=== PATIENT | female | born 1955 | race Caucasian/White ===

== ENCOUNTER → 2018-06-14 | Outpatient (CLI) | payer MEDICARE, MEDICAID ==
--- NOTE | 2018-06-14 14:49 | RADIOLOGY REPORT (SQ) ---
EXAM DESCRIPTION: CHEST 2 VIEWS COMPLETED DATE/TIME: 06/14/2018 1:45 pm REASON FOR STUDY: COUGH COMPARISON: None. EXAM PARAMETERS: NUMBER OF VIEWS: two views TECHNIQUE: Digital Frontal and Lateral radiographic views of the chest acquired. RADIATION DOSE: NA LIMITATIONS: none FINDINGS: LUNGS AND PLEURA: No opacities, masses or pneumothorax. No pleural effusion. MEDIASTINUM AND HILAR STRUCTURES: No masses or contour abnormalities. HEART AND VASCULAR STRUCTURES: Borderline cardiomegaly. No evidence for failure. BONES: Increased kyphotic curvature in dextroconvex scoliosis of the thoracic spine and degenerative changes. HARDWARE: None in the chest. OTHER: Prior cholecystectomy. Hardware anterior fusion lower cervical spine. IMPRESSION: 1. NO ACUTE RADIOGRAPHIC FINDING IN THE CHEST. TECHNICAL DOCUMENTATION: JOB ID: [id number] [employer]- All Rights Reserved Reading location - IP/workstation name: [email or web address]
== END ==
LOC: RAD 13:22
PROVIDERS: ATTEND Physician Assistant
DX: J44.9 Chronic obstructive pulmonary disease, unspecified (principal); R05 Cough
CPT/HCPCS: 71046

== ENCOUNTER → 2019-09-11 | Outpatient (CLI) | payer MEDICARE, MEDICAID ==
--- NOTE | 2019-09-11 13:06 | ER RDC ASSESSMENT REPORT ---
Intake - In the Last 14 days Have you traveled outside [place]?: No Have you been in close contact with someone CONFIRMED: No Worked in Healthcare?: No - Symptoms Subjective Fever([place] feverish): No Chills: No Muscule Aches: No Runny Nose: Yes Sore Throat: Yes Cough (New or worsening chronic cough): Yes Shortness of breath: Yes Nausea or Vomiting: No Headache: Yes Abdominal Pain: No Diarrhea(3 or more loose stools in last 24 hours): Yes - Do you have any of the following Chronic lung disease: Asthma or emphysema or COPD: Yes Chronic Lung Disease Comment: Has a history of COPD and asthma Cystic Fibrosis: No Diabetes: Yes High Blood Pressure: Yes Cardiovascular Disease: Yes Chronic Kidney Disease: No Chronic Liver Disease: No Chronic blood disorder like Sickle Cell Disease: No Weak immune system due to disease or medication: Yes Immune System Comment: Has history of bladder cancer with recent tumor removal this past August Neurologic condition that limits movement: No Developmental delay - Moderate to Severe: No Recent (within past 2 weeks) or current : No Morbid Obesity (>100 pounds over ideal weight): No Obesity Comment: Height 5 feet 3 inches weight 170 pounds - Objective Temperature: 98.1 F Pulse Rate: 61 Respiratory Rate: 20 Blood Pressure: 117/54 O2 Sat by Pulse Oximetry: 94 Objective: Given above, testing performed: If Testing Performed: Test Specimen Type Sent to General - General Information source: Patient Notes: Here at [facility] for COVID testing. Started feeling sick 2 days ago with runny nose sore throat cough. Was recently at a family gathering where members were sick and potentially have COVID. Patient has not notified PCP of recent illness. Plans to call her today. Denies fever, denies chills or muscle aches. Complains feels like sinus infection. Past Medical History - Social History Smoking Status: Current Every Day Smoker Physical Exam - General General appearance: Appears well, Alert In distress: None Notes: PHYSICAL EXAMINATION: GENERAL: Well-appearing and in no acute distress. HEAD: Atraumatic, normocephalic. EYES: sclera anicteric, conjunctiva are normal. ENT: nares patent. Moist mucous membranes. NECK: Normal range of motion, supple without lymphadenopathy LUNGS: CTAB and equal. No wheezes rales or rhonchi. Resp even and unlabored. Lung sounds clear. HEART: Regular rate and rhythm without murmurs ABDOMEN: Soft, nontender, normal bowel sounds, no guarding. EXTREMITIES: No cyanosis. NEUROLOGICAL: Normal speech. PSYCH: Normal mood, normal affect. SKIN: Warm, Dry, normal turgor, Diagnostic Results Laboratory Results: Patient instructed on negative rapid strep and negative rapid flu results. Pending strep culture pending COVID testing results. Patient provided instructions regarding COVID to include: As a person under investigation for Covid 19, the [facility], division of public health advises you to adhere to the following guidance until your test results are reported to you. If your test result is positive, you will receive additional information from your provider and your local health department at that time. Remain at home until you are cleared by the health provider or public health authorities. Keep a log of visitors to your home, notify any visitors to your home of your isolation status. If you plan to move to a new address or leave the [facility], notify the local health department in your [facility]. Call your doctor or seek care if you have an urgent medical need. Before seeking medical care, call ahead to get instructions from the provider before arriving at the medical office clinic or hospital. Notify them that you are being tested for the virus that causes Covid 19 so that arrangements can be made, as necessary, to prevent transmission to others in the healthcare setting. Next, notify the local health department in your [facility]. If a medical emergency arises and you need to call 911, inform the first responders that you are being tested for the virus that causes Covid 19. Next, notify the local health department in your [facility]. Patient Education/Counseling Counseling/Education: Patient presents with upper respiratory symptoms worrisome for possible Covid 19. Patient does not have emergency worring symptoms such as difficulty breathing, shortness of breath, chest pain, pressure, confusion or cyanosis. Patient appears suitable for discharge. Patient instruced to follow up with PCP in [facility],. Instructed to go to ED for persistent or worsening symptoms. Patient's vital signs are stable and patient is nontoxic in appearance. Good return precautions have been discussed with patient, patient verbalized understanding and is agreeable with discharge plan of care at this time. RDC Discharge - Discharge Clinical Impression: Upper respiratory infection, COVID - 19 SCREENING Condition: Stable Disposition: Home; Selfcare
[2019-09-11 13:19] VITALS: BP 117/54
[2019-09-11 14:46] LABS: A TYPE INFLUENZA AG NEGATIVE (NEGATIVE); B INFLUENZA AG NEGATIVE (NEGATIVE)
== END ==
LOC: RDC 12:20
PROVIDERS: ATTEND Nurse Practitioner Family
DX: J06.9 Acute upper respiratory infection, unspecified (principal); Z20.828 Contact with and (suspected) exposure to other viral communicable diseases; J02.9 Acute pharyngitis, unspecified; R09.89 Other specified symptoms and signs involving the circulatory and respiratory systems; R05 Cough; R06.02 Shortness of breath; R51 Headache; R19.7 Diarrhea, unspecified; J44.9 Chronic obstructive pulmonary disease, unspecified; F17.200 Nicotine dependence, unspecified, uncomplicated; I10 Essential (primary) hypertension; Z85.51 Personal history of malignant neoplasm of bladder
CPT/HCPCS: 87070; 87880; 87804; U0003; 87635; 99211

== ENCOUNTER 2019-09-26 11:34 | Inpatient (IN) | payer MEDICARE, MEDICAID ==
[2019-09-26] MEDS ORDERED: NORMAL SALINE 1000 ML 1,000 ML IV ONE ×2 (11:57→15:45)
[2019-09-26 12:12] LABS: ABSOLUTE BASOPHILS # (AUTO) 0.1 10^3/uL (0.0-0.2); ABSOLUTE EOSINOPHILS # (AUTO) 0.2 10^3/uL (0.0-0.6); ABSOLUTE LYMPHOCYTES (AUTO) 2.3 10^3/uL (0.5-4.7); ABSOLUTE MONOCYTES (AUTO) 0.9 10^3/uL (0.1-1.4); ABSOLUTE NEUT (AUTO) 8.2 10^3/uL (1.7-8.2); BASOPHILS % (AUTO) 0.9 % (0-2); EOSINOPHILS % (AUTO) 1.6 % (0-6); HEMATOCRIT 50.3 % (36.0-47.0); HEMOGLOBIN 16.8 g/dL (12.0-15.5); MEAN CORPUSCULAR HEMOGLOBIN 31.5 pg (27.0-33.4); MEAN CORPUSCULAR HGB CONC 33.3 g/dL (32.0-36.0); MEAN CORPUSCULAR VOLUME 94 fl (80-97); MONOCYTES % (AUTO) 7.5 % (3-13); PLATELET COUNT 172 10^3/uL (150-450); RED BLOOD COUNT 5.33 10^6/uL (3.72-5.28); RED CELL DISTRIBUTION WIDTH 14.9 % (11.5-14.0); TOTAL CELLS COUNTED % (AUTO) 100 %; WHITE BLOOD COUNT 11.7 10^3/uL (4.0-10.5)
[2019-09-26 12:20] LABS: INTERNATIONAL RATION (INR) 0.98
[2019-09-26 13:17] LABS: VENOUS BLOOD BASE EXCESS -2.4 mmol/L; VENOUS BLOOD HCO3 26.7 mmol/L (20-32); VENOUS BLOOD PCO2 63.8 mmHg (35-63); VENOUS BLOOD PH 7.24 (7.30-7.42)
[2019-09-26 13:35] LABS: ALBUMIN 3.7 g/dL (3.5-5.0); ALKALINE PHOSPHATASE 81 U/L (38-126); ANION GAP 6 (5-19); ASPARTATE AMINO TRANSFERASE 16 U/L (14-36); BILIRUBIN,TOTAL 0.6 mg/dL (0.2-1.3); BLOOD UREA NITROGEN 24 mg/dL (7-20); CALCIUM 8.7 mg/dL (8.4-10.2); CARBON DIOXIDE 25 mmol/L (22-30); CHLORIDE 106 mmol/L (98-107); GLUCOSE 138 mg/dL (75-110); POTASSIUM 4.7 mmol/L (3.6-5.0); TOTAL PROTEIN 6.4 g/dL (6.3-8.2)
--- NOTE | 2019-09-26 15:14 | RADIOLOGY REPORT (SQ) ---
EXAM DESCRIPTION: CT ABD/PELVIS WITH IV ONLY IMAGES COMPLETED DATE/TIME: 09/26/2019 2:57 pm REASON FOR STUDY: pain/vomiting COMPARISON: None. TECHNIQUE: CT scan of the abdomen and pelvis performed using helical scanning technique with dynamic intravenous contrast injection. No oral contrast. Images reviewed with lung, soft tissue, and bone windows. Reconstructed coronal and sagittal MPR images reviewed. Delayed images for evaluation of the urinary system also acquired. All images stored on PACS. All CT scanners at this facility use dose modulation, iterative reconstruction, and/or weight based d osing when appropriate to reduce radiation dose to as low as reasonably achievable (ALARA). [facility]: Dose Right [facility]: CareDose [facility]: Dose Right [facility]: Teradose 4D [facility]: Crystalplex CONTRAST TYPE AND DOSE: contrast/concentration: Isovue 350.00 mg/ml; Total Contrast Delivered: 87.0 ml; Total Saline Delivered: 46.7 ml RENAL FUNCTION: BUN 21 creatinine 0.8 RADIATION DOSE: CT Rad equipment meets quality standard of care and radiation dose reduction techniq ues were employed. CTDIvol: 10.2 - 14.2 mGy. DLP: 1285 mGy-cm.. LIMITATIONS: None. FINDINGS: LOWER CHEST: No significant findings. No nodules or infiltrates. LIVER: There is a 15 mm low-density lesion right lobe of the liver that shows partial peripheral opac ification on the delayed images. Likely hemangioma. SPLEEN: Normal size. No focal lesions. PANCREAS: No masses. No significant calcifications. No adjacent inflammation or peripancreatic fluid collections. Pancreatic duct not dilated. GALLBLADDER: Surgically absent. ADRENAL GLANDS: No significant masses or asymmetry. RIGHT KIDNEY AND URETER: No solid masses. No significant calcifications. No hydronephrosis or hyd roureter. LEFT KIDNEY AND URETER: No solid masses. No significant calcifications. No hydronephrosis or hydr oureter. AORTA AND VESSELS: No aneurysm. No dissection. Renal arteries, SMA, celiac without stenosis. RETROPERITONEUM: No retroperitoneal adenopathy, hemorrhage or masses. BOWEL AND PERITONEAL CAVITY: There is wall thickening in some small bowel near the midline to the rig ht of the midline PA just cephalad to this is a ventral hernia containing a loop of small bowel that does not appear obstructed. There is a 2nd ventral hernia seen on image 71 that contains nonobstruct ed loop of small bowel. APPENDIX: Surgically absent. PELVIS: No mass. No free fluid. Normal bladder. ABDOMINAL WALL: See above under bowel and peritoneal cavity. BONES: No significant or acute findings. OTHER: No other significant finding. IMPRESSION: 1. There are 2 ventral hernias containing a small loop of small bowel. Associated with the more cephalad hernia are some small bowel loops that have thickened mccabe. Cannot exclude infla mmatory bowel disease. Is possible that the wall thickening is is somewhat a associated with the trang tral hernia although the bowel within the hernia is not thickened. 2. Likely 15 mm hepatic hemangioma. TECHNICAL DOCUMENTATION: JOB ID: [id number] Quality ID # [id number]: Final reports with documentation of one or more dose reduction techniques (e.g., Au tomated exposure control, adjustment of the mA and/or kV according to patient size, use of iterative reconstruction technique) 2010 [employer]- All Rights Reserved Reading location - IP/workstation name: [email or web address]
[2019-09-26 15:19] LABS: APPEARANCE,URINE CLEAR; BILIRUBIN,URINE NEGATIVE (NEGATIVE); COLOR,URINE YELLOW; GLUCOSE, URINE NEGATIVE (NEGATIVE); KETONES,URINE NEGATIVE (NEGATIVE); PROTEIN,URINE NEGATIVE (NEGATIVE); URINE SPECIFIC GRAVITY 1.028; UROBILINOGEN,URINE NEGATIVE mg/dL (<2.0)
[2019-09-26] MEDS ORDERED: MORPHINE SULFATE 10 MG/ML INJ IV ONE (15:35)
[2019-09-26] MEDS ORDERED: METRONIDAZOLE 500 MG/NS RTU 500 MG/100 ML RTUPB IV ONE (15:46)
[2019-09-26] MEDS: CIPROFLOXACIN 400 MG/D5W RTU 400 MG/200 ML RTUPB IV SCH ×3 (16:00→22:24)
--- NOTE | 2019-09-26 16:02 | PDOC CONSULTATION ---
Consultation Consult Date: 09/26/19 Provider Consulted: SURGICAL SURGICALIST MD Consult reason:: abdominal pain History of Present Illness History of Present Illness: ROMELIA PEARCE is a 64-year-old female with a 2-day history of abdominal pain. She is seen in consultation at the request of the emergency department. Her pain is sharp and stabbing. It occurs in the right lower and left lower quadrants. She rates her pain is 8 out of 10. She reports nausea and vomiting. Her pain progressively worsened, and she presented to the emergency department for evaluation. The patient is status post appendectomy and cholecystectomy in the remote past. She reports that her pain began after eating shrimp and pasta. She does report multiple sick contacts, including patients with COVID-19. The patient recently tested negative for COVID-19 herself. She denies any diarrhea at this time. She denies melena, hematochezia, or hematemesis. Past Medical History Cardiac Medical History: Reports: Congestive Heart Failure Pulmonary Medical History: Reports: Chronic Obstructive Pulmonary Disease (COPD) Past Surgical History Past Surgical History: Reports: Appendectomy, Cholecystectomy Social History Smoking Status: Current Every Day Smoker Hx Recreational Drug Use: No Hx Prescription Drug Abuse: No Family History Parental Family History Reviewed: Yes Children Family History Reviewed: Yes Sibling(s) Family History Reviewed.: Yes Medication/Allergy Allergies/Adverse Reactions: codeine Allergy (Verified 09/26/19 12:16) Sulfa (Sulfonamide Antibiotics) Allergy (Verified 09/26/19 12:16) Review of Systems Constitutional: PRESENT: fatigue, weakness. ABSENT: chills Eyes: ABSENT: visual disturbances Ears: ABSENT: hearing changes Nose, Mouth, and Throat: ABSENT: sore throat Cardiovascular: ABSENT: chest pain Respiratory: PRESENT: cough. ABSENT: dyspnea Gastrointestinal: PRESENT: abdominal pain, bloating, nausea, vomiting. ABSENT: hematemesis, hematochezia, melena Genitourinary: ABSENT: dysuria Musculoskeletal: ABSENT: back pain Neurological: ABSENT: confusion, convulsions, dizziness Psychiatric: ABSENT: anxiety, depression Endocrine: ABSENT: cold intolerance, heat intolerance Hematologic/Lymphatic: ABSENT: easy bleeding, easy bruising Physical Exam Vital Signs: Temp Pulse Resp BP Pulse Ox 98 F 61 25 H 110/60 95 09/26/19 11:57 09/26/19 11:57 09/26/19 15:14 09/26/19 15:14 09/26/19 15:14 Intake & Output 09/25/19 09/26/19 09/27/19 06:59 06:59 06:59 Intake Total 1000 Balance 1000 Weight 76.8 kg General appearance: PRESENT: no acute distress, cooperative Head exam: PRESENT: atraumatic, normocephalic Eye exam: PRESENT: EOMI, PERRLA. ABSENT: scleral icterus Mouth exam: PRESENT: neck supple Neck exam: ABSENT: meningismus, tenderness, thyromegaly, tracheal deviation Respiratory exam: PRESENT: unlabored. ABSENT: tachypnea, wheezes Cardiovascular exam: ABSENT: tachycardia Vascular exam: PRESENT: normal capillary refill. ABSENT: pallor GI/Abdominal exam: PRESENT: distended - mild, soft, tenderness - Right lower quadrant and left lower quadrant, other - Small midline ventral hernia that is completely reducible.. ABSENT: firm, guarding, rebound, rigid Rectal exam: PRESENT: deferred Extremities exam: ABSENT: clubbing Musculoskeletal exam: ABSENT: deformity Neurological exam: PRESENT: alert, awake, oriented to person, oriented to place, oriented to time, oriented to situation, CN II-XII grossly intact Psychiatric exam: ABSENT: agitated, anxious, depressed Focused psych exam: ABSENT: delusional Skin exam: ABSENT: cyanosis, erythema, jaundice Results Laboratory Results: 09/26/19 11:48 09/26/19 13:03 09/26/19 09/26/19 09/26/19 11:48 11:48 13:03 WBC 11.7 H RBC 5.33 H Hgb 16.8 H Hct 50.3 H MCV 94 MCH 31.5 MCHC 33.3 RDW 14.9 H Plt Count 172 Seg Neutrophils % 70.0 VBG pH 7.24 L VBG pCO2 63.8 H VBG HCO3 26.7 VBG Base Excess -2.4 Sodium Cancelled Potassium Cancelled Chloride Cancelled Carbon Dioxide Cancelled Anion Gap Cancelled BUN Cancelled Creatinine Cancelled Est GFR ( Amer) Cancelled Est GFR (Non-Af Amer) Cancelled Glucose Cancelled Lactic Acid Calcium Cancelled Total Bilirubin Cancelled AST Cancelled Alkaline Phosphatase Cancelled Total Protein Cancelled Albumin Cancelled Urine Color Urine Appearance Urine pH Ur Specific [place] Urine Protein Urine Glucose (UA) Urine Ketones Urine Blood Urine RBC (Auto) 09/26/19 09/26/19 09/26/19 13:03 14:15 15:05 WBC RBC Hgb Hct MCV MCH MCHC RDW Plt Count Seg Neutrophils % VBG pH VBG pCO2 VBG HCO3 VBG Base Excess Sodium 137.3 Potassium 4.7 Chloride 106 Carbon Dioxide 25 Anion Gap 6 BUN 24 H Creatinine 0.80 Est GFR ( Amer) > 60 Est GFR (Non-Af Amer) Glucose 138 H Lactic Acid 2.1 Calcium 8.7 Total Bilirubin 0.6 AST 16 Alkaline Phosphatase 81 Total Protein 6.4 Albumin 3.7 Urine Color YELLOW Urine Appearance CLEAR Urine pH 5.0 Ur Specific [place] 1.028 Urine Protein NEGATIVE Urine Glucose (UA) NEGATIVE Urine Ketones NEGATIVE Urine Blood NEGATIVE Urine RBC (Auto) 0 09/26/19 09/26/19 11:48 13:03 Troponin I Cancelled < 0.012 Impressions: Abdomen/Pelvis CT 09/26/19 11:57 IMPRESSION: 1. There are 2 ventral hernias containing a small loop of small bowel. Associated with the more cephalad hernia are some small bowel loops that have thickened mccabe. Cannot exclude inflammatory bowel disease. Is possible that the wall thickening is is somewhat a associated with the ventral hernia although the bowel within the hernia is not thickened. 2. Likely 15 mm hepatic hemangioma. Assessment & Plan - Diagnosis (1) Abdominal pain Qualifiers: Abdominal location: generalized Qualified Code(s): R10.84 - Generalized abdominal pain Is this a current diagnosis for this admission?: Yes (2) Enteritis Is this a current diagnosis for this admission?: Yes - Plan Summary Plan Summary: This is a 64-year-old female with abdominal pain. I reviewed her CT scan. She has extensive enteritis present throughout the abdomen. She has no obvious evidence of small bowel obstruction or incarceration of her hernia. On exam, her hernia is completely reducible. She has mild to moderate tenderness, without peritoneal signs. At this time I believe she is experiencing enteritis (either bacterial or viral). I do not believe she will require any surgical intervention. I do not believe her hernia is related to her abdominal comp laints. Recommend medical evaluation. Surgery will follow this patient with you.
[2019-09-26] MEDS ORDERED: MAGNESIUM HYDROXIDE SUSP 30 ML UDCUP PO PRN (17:08)
[2019-09-26] MEDS ORDERED: ACETAMINOPHEN 325 MG TABLET PO PRN (17:08)
[2019-09-26] MEDS ORDERED: MAG HYDROX/AL HYDROX/SIMETH SUSP 30 ML UDCUP PO PRN (17:08)
[2019-09-26] MEDS ORDERED: DIPHENOXYLATE HCL/ATROP SULF 2.5-0.025 MG TABLET PO PRN (17:14)
[2019-09-26] MEDS ORDERED: ZOLPIDEM TARTRATE 5 MG TABLET PO PRN (17:14)
[2019-09-26] MEDS ORDERED: ALBUTEROL SULFATE HFA (90 MCG/PUFF) 8 GM MDI IH PRN (17:17)
[2019-09-26] MEDS ORDERED: OXYCODONE HCL IR 5 MG TABLET PO PRN (17:18)
--- NOTE | 2019-09-26 17:19 | ER Document Report ---
ED General - General Chief Complaint: Abdominal Pain Stated Complaint: ABDOMINAL PAIN Time Seen by Provider: 09/26/19 11:38 Information source: Patient TRAVEL OUTSIDE OF THE [place] IN LAST 30 DAYS: No - HPI Notes: Patient presents with severe abdominal pain. It is constant and diffuse. It is worse with movement and better with rest. It radiates throughout her abdomen. She states she has had this since yesterday. No fevers cough cold or congestion. She has had vomiting and diarrhea she states. She states she has had previous abdominal surgery for diverticulitis and a "ruptured colon". She describes the pain as crampy. - Related Data Allergies/Adverse Reactions: codeine Allergy (Verified 09/26/19 12:16) Sulfa (Sulfonamide Antibiotics) Allergy (Verified 09/26/19 12:16) Past Medical History - General Information source: Patient - Social History Smoking Status: Current Every Day Smoker Frequency of alcohol use: None Drug Abuse: None Family History: Reviewed & Not Pertinent Patient has homicidal ideation: No - Past Medical History Cardiac Medical History: Reports: Hx Congestive Heart Failure Pulmonary Medical History: Reports: Hx COPD Past Surgical History: Reports: Hx Appendectomy, Hx Bowel Surgery, Hx Cholecystectomy Review of Systems - Review of Systems Constitutional: denies: Chills, Fever Cardiovascular: denies: Chest pain, Palpitations Respiratory: denies: Cough, Short of breath - Stop chewing -: Yes All other systems reviewed and negative Physical Exam - Vital signs Vitals: Pulse Ox 95 09/26/19 11:40 Interpretation: Normal - General General appearance: Appears well, Alert - HEENT Head: Normocephalic, Atraumatic Eyes: Normal Pupils: PERRL - Respiratory Respiratory status: No respiratory distress Chest status: Nontender Breath sounds: Normal Chest palpation: Normal - Cardiovascular Rhythm: Regular Heart sounds: Normal auscultation Murmur: No - Abdominal Inspection: Obese, Other - Obvious ventral wall hernia Distension: No distension Bowel sounds: Hypoactive Tenderness: Tender - Diffusely but without surgical abdominal signs. She does have a ventral wall hernia however it is easily reduced. Organomegaly: No organomegaly - Back Back: Normal, Nontender - Extremities General upper extremity: Normal inspection, Nontender, Normal color, Normal ROM, Normal temperature General lower extremity: Normal inspection, Nontender, Normal color, Normal ROM, Normal temperature, Normal weight bearing. No: Hanh's sign - Neurological Neuro grossly intact: Yes Cognition: Normal Orientation: AAOx4 Bre Coma Scale Eye Opening: Spontaneous [place] Coma Scale Verbal: Oriented Bre Coma Scale Motor: Obeys Commands [place] Coma Scale Total: 15 Speech: Normal Motor strength normal: LUE, RUE, LLE, RLE Sensory: Normal - Psychological Associated symptoms: Normal affect, Normal mood - Skin Skin Temperature: Warm Skin Moisture: Dry Skin Color: Normal Course - Re-evaluation Re-evalutation: 09/26/19 17:16 Patient presents with diffuse abdominal pain. She has an obvious ventral wall hernia however this can be reduced. On CT scan she does have colitis. This was reviewed by the surgeon who felt that this was nonsurgical at this time. She will be admitted the medicine due to the patient having dehydration and signific ant abdominal discomfort. - Vital Signs Vital signs: Temp Pulse Resp BP Pulse Ox 98 F 61 23 H 109/69 92 09/26/19 11:57 09/26/19 11:57 09/26/19 16:01 09/26/19 16:00 09/26/19 16:01 - Laboratory Result Diagrams: 09/26/19 11:48 09/26/19 13:03 Laboratory results interpreted by me: 09/26/19 09/26/19 09/26/19 11:48 13:03 13:03 WBC 11.7 H RBC 5.33 H Hgb 16.8 H Hct 50.3 H RDW 14.9 H VBG pH 7.24 L VBG pCO2 63.8 H BUN 24 H Glucose 138 H POC Glucose 09/26/19 13:18 WBC RBC Hgb Hct RDW VBG pH VBG pCO2 BUN Glucose POC Glucose 132 H - Diagnostic Test Radiology reviewed: Image reviewed, Reports reviewed Discharge - Discharge Clinical Impression: Colitis, Enteritis, Dehydration Condition: Fair Disposition: ADMITTED INPATIENT Admitting Provider: Pamela (Hospitalist) Unit Admitted: Medical Floor
[2019-09-26] MEDS ORDERED: DEXTROSE 40% GEL 15 GM TUBE PO PRN ×2 (17:21)
[2019-09-26] MEDS ORDERED: GLUCAGON,HUMAN RECOMB 1 MG INJ IM PRN (17:21)
[2019-09-26] MEDS ORDERED: DEXTROSE 50%-WATER 25 GM/50 ML DISP.SYRIN IV PRN ×2 (17:21)
[2019-09-26] MEDS ORDERED: LORAZEPAM INJ 2 MG/1 ML VIAL IV PRN (17:28)
--- NOTE | 2019-09-26 17:47 | PDOC H&P ---
History of Present Illness Patient complains of: Abdominal pain with nausea and vomiting History of Present Illness: ROMELIA PEARCE is a 64 year old female with a long history of digestive disorders. She thinks she has been told that she has colitis. She does remember her colon rupturing then having surgery to remove part of the colon. She also reports delayed gastric emptying time. She believes that the time was greater than 3 hours. Also has a history of stroke, diabetes, atrial fibrillation and a pulmonary embolus. She reports having a pacemaker and a history of thyroid surgery. She is on long-term anticoagulation. She states that this episode abdominal pain, nausea and vomiting started last evening. She had a seafood dish with shrimp and pasta. She has been having increased abdominal pain as well as nausea and vomiting. Her appetite has been diminished. She reports chills but no fever. She has several areas of discomfort including the epigastrium as well as the right and left lower jose drants. The CT scan of the abdomen shows some inflammation in the small bowel. There are 2 ventral hernias with bowel but these reduce easily per Dr. Munoz's note. She will be admitted for IV antibiotics and pain management. In addition will need to monitor her Accu-Cheks and vital signs. We will follow her oral intake. Have asked Dr. Munoz to continue to follow the patient up with us. Past Medical History Cardiac Medical History: Reports: Atrial Fibrillation, Congestive Heart Failure, DVT, Pulmonary Embolism Pulmonary Medical History: Reports: Chronic Obstructive Pulmonary Disease (COPD) Neurological Medical History: Reports: Ischemic CVA Endocrine Medical History: Reports: Diabetes Mellitus Type 2 GI Medical History: Reports: Diverticulitis - Probable diverticular disease that led to rupture of the colon, Gastroesophageal Reflux Disease, Other - Gastroparesis Musculoskeltal Medical History: Reports: Other - Chronic pain Psychiatric Medical History: Reports: Tobacco Dependency, Other - Anxiety Past Surgical History Past Surgical History: Reports: Appendectomy, Cholecystectomy, Other - Partial colectomy Social History Information Source: Patient Lives with: Spouse/Significant other Smoking Status: Current Every Day Smoker Electronic Cigarette use?: No Frequency of Alcohol Use: Occasional Hx Recreational Drug Use: No Hx Prescription Drug Abuse: No - Advance Directive Resuscitation Status: Full Code Surrogate healthcare decision maker:: Her oldest child is the legal decision-maker. Family History Family History: Reviewed & Not Pertinent, Malignancy Parental Family History Reviewed: Yes Children Family History Reviewed: Yes Sibling(s) Family History Reviewed.: Yes Medication/Allergy Home Medications: Apixaban [Eliquis 5 mg Tablet] 5 mg PO BID 09/26/19 Atorvastatin Calcium [Lipitor 40 mg Tablet] 40 mg PO QHS 09/26/19 Baclofen [Baclofen 10 mg Tablet] 10 mg PO TID 09/26/19 Colchicine [Colcrys 0.6 mg Tablet] 1 tab PO DAILY 09/26/19 Diclofenac Epolamine 1 each TD Q12 09/26/19 Diphenoxylate HCl/Atropine [Lomotil Tablet] 1 each PO DAILYP PRN 09/26/19 Furosemide [Lasix] 40 mg PO BID 09/26/19 Hydroxyzine Pamoate [Vistaril 50 mg Capsule] 50 mg PO Q8 09/26/19 Ipratropium/Albuterol Sulfate [Combivent Respimat 4 gm Mdi] 1 puff IH TID 09/26/19 Metformin HCl [Glucophage 500 mg Tablet] 500 mg PO DAILY 09/26/19 Metoprolol Succinate [Toprol Xl 25 mg Tab.sr] 25 mg PO DAILY 09/26/19 Ondansetron HCl [Zofran 8 mg Tablet] 8 mg PO Q8HP PRN 09/26/19 Oxycodone HCl [Oxy-Ir 5 mg Tablet] 15 mg PO 5XDP PRN 09/26/19 Potassium Chloride [Klor-Con M20] 20 meq PO BID 09/26/19 Propafenone HCl [Rythmol Sr] 325 mg PO Q12 09/26/19 Roflumilast [Daliresp] 500 mcg PO DAILY 09/26/19 Telmisartan/Hydrochlorothiazid [Telmisartan-Hctz 80-12.5 mg Tb] 1 tab PO DAILY 09/26/19 Zolpidem Tartrate [Ambien 5 mg Tablet] 5 mg PO HSP PRN 09/26/19 Allergies/Adverse Reactions: codeine Allergy (Verified 09/26/19 12:16) Sulfa (Sulfonamide Antibiotics) Allergy (Verified 09/26/19 12:16) Review of Systems All systems: reviewed and no additional remarkable complaints except as stated Constitutional: PRESENT: chills Gastrointestinal: PRESENT: abdominal pain, heartburn, nausea, vomiting Psychiatric: PRESENT: anxiety Physical Exam Vital Signs: Temp Pulse Resp BP Pulse Ox 98 F 61 23 H 109/69 92 09/26/19 11:57 09/26/19 11:57 09/26/19 16:01 09/26/19 16:00 09/26/19 16:01 Intake & Output 09/25/19 09/26/19 09/27/19 06:59 06:59 06:59 Intake Total 1200 Balance 1200 Weight 76.8 kg General appearance: PRESENT: cooperative, mild distress, well-developed, well- nourished Head exam: PRESENT: atraumatic, normocephalic Eye exam: PRESENT: conjunctiva pink, EOMI, PERRLA. ABSENT: scleral icterus Ear exam: PRESENT: normal external ear exam. ABSENT: bleeding, drainage Mouth exam: PRESENT: dry mucosa, tongue midline Teeth exam: ABSENT: poor dentation Neck exam: PRESENT: full ROM. ABSENT: carotid bruit, JVD, lymphadenopathy, tracheostomy Respiratory exam: PRESENT: clear to auscultation zen, symmetrical, unlabored. ABSENT: accessory muscle use, rales, rhonchi, tachypnea, wheezes Cardiovascular exam: PRESENT: RRR, +S1, +S2. ABSENT: irregular rhythm, t achycardia Pulses: PRESENT: +1 pedal pulses bilateral GI/Abdominal exam: PRESENT: diminished bowel sounds, soft, tenderness - Especially epigastric and right and left lower quadrants. ABSENT: distended, guarding Rectal exam: PRESENT: deferred Gentrourinary exam: ABSENT: indwelling catheter Extremities exam: ABSENT: pedal edema Musculoskeletal exam: PRESENT: normal inspection. ABSENT: deformity Neurological exam: PRESENT: alert, awake, oriented to person, oriented to place, oriented to time, oriented to situation, CN II-XII grossly intact. ABSENT: altered, motor sensory deficit Psychiatric exam: PRESENT: anxious, appropriate affect. ABSENT: agitated Focused psych exam: ABSENT: delusional, paranoid, restlessness Skin exam: PRESENT: dry, normal color, warm. ABSENT: rash Results Laboratory Results: 09/26/19 11:48 09/26/19 13:03 09/26/19 09/26/19 09/26/19 11:48 11:48 13:03 WBC 11.7 H RBC 5.33 H Hgb 16.8 H Hct 50.3 H MCV 94 MCH 31.5 MCHC 33.3 RDW 14.9 H Plt Count 172 Seg Neutrophils % 70.0 VBG pH 7.24 L VBG pCO2 63.8 H VBG HCO3 26.7 VBG Base Excess -2.4 Sodium Cancelled Potassium Cancelled Chloride Cancelled Carbon Dioxide Cancelled Anion Gap Cancelled BUN Cancelled Creatinine Cancelled Est GFR ( Amer) Cancelled Est GFR (Non-Af Amer) Cancelled Glucose Cancelled Lactic Acid Calcium Cancelled Total Bilirubin Cancelled AST Cancelled Alkaline Phosphatase Cancelled Total Protein Cancelled Albumin Cancelled Urine Color Urine Appearance Urine pH Ur Specific [place] Urine Protein Urine Glucose (UA) Urine Ketones Urine Blood Urine RBC (Auto) 09/26/19 09/26/19 09/26/19 13:03 14:15 15:05 WBC RBC Hgb Hct MCV MCH MCHC RDW Plt Count Seg Neutrophils % VBG pH VBG pCO2 VBG HCO3 VBG Base Excess Sodium 137.3 Potassium 4.7 Chloride 106 Carbon Dioxide 25 Anion Gap 6 BUN 24 H Creatinine 0.80 Est GFR ( Amer) > 60 Est GFR (Non-Af Amer) Glucose 138 H Lactic Acid 2.1 Calcium 8.7 Total Bilirubin 0.6 AST 16 Alkaline Phosphatase 81 Total Protein 6.4 Albumin 3.7 Urine Color YELLOW Urine Appearance CLEAR Urine pH 5.0 Ur Specific [place] 1.028 Urine Protein NEGATIVE Urine Glucose (UA) NEGATIVE Urine Ketones NEGATIVE Urine Blood NEGATIVE Urine RBC (Auto) 0 09/26/19 09/26/19 11:48 13:03 Troponin I Cancelled < 0.012 Impressions: Abdomen/Pelvis CT 09/26/19 11:57 IMPRESSION: 1. There are 2 ventral hernias containing a small loop of small bowel. Associated with the more cephalad hernia are some small bowel loops that have thickened mccabe. Cannot exclude inflammatory bowel disease. Is possible that the wall thickening is is somewhat a associated with the ventral hernia although the bowel within the hernia is not thickened. 2. Likely 15 mm hepatic hemangioma. Assessment and Plan - Diagnosis (1) Enteritis Is this a current diagnosis for this admission?: Yes Plan: 09/26/2019 Possibly related to her meal last night. Stool studies were ordered by the emergency department physician. Intravenous metronidazole and ciprofloxacin. Intravenous medications for pain, nausea and vomiting. (2) Abdominal pain Qualifiers: Abdominal location: generalized Qualified Code(s): R10.84 - Generalized abdominal pain Is this a current diagnosis for this admission?: Yes Plan: 09/26/2019 The patient is on oxycodone at home. She reports a history of delayed gastric emptying and the pain medication certainly do not help. We will utilize intravenous analgesia with the time being and reassess tomorrow. (3) Dehydration Is this a current diagnosis for this admission?: Yes Plan: 09/26/2019 BUN was slightly elevated. Will administer IV fluids. Recheck laboratory studies tomorrow. We will also hold her furosemide for tonight. (4) Hyperglycemia due to type 2 diabetes mellitus Qualifiers: Diabetes mellitus usp insulin use: without usp use Qualified Code(s): E11.65 - Type 2 diabetes mellitus with hyperglycemia Is this a current diagnosis for this admission?: Yes Plan: 09/26/2019 We will continue her metformin and utilize Accu-Cheks with sliding scale coverage. (5) Longstanding persistent atrial fibrillation Is this a current diagnosis for this admission?: Yes Plan: 09/26/2019 Atrial fibrillation is well controlled. We will continue her current medication regimen including anticoagulation. (6) Hypertension Qualifiers: Hypertension type: essential hypertension Qualified Code(s): I10 - Essential (primary) hypertension Is this a current diagnosis for this admission?: Yes Plan: 09/26/2019 Continue current medication regimen. Monitor vital signs. (7) Hyperlipidemia Qualifiers: Hyperlipidemia type: unspecified Qualified Code(s): E78.5 - Hyperlipidemia, unspecified Is this a current diagnosis for this admission?: Yes Plan: 09/26/2019 Continue statin therapy (8) Tobacco dependence due to cigarettes Is this a current diagnosis for this admission?: Yes Plan: 09/26/2019 Nicotine patch will be available if needed. (9) Chronic obstructive pulmonary disease Qualifiers: COPD type: unspecified COPD Qualified Code(s): J44.9 - Chronic obstructive pulmonary disease, unspecified Is this a current diagnosis for this admission?: Yes Plan: 09/26/2019 We will utilize combination of nebulizer treatments and inhalers and continue her Daliresp - Time Time Spent with patient: 35 or more minutes Smoking Cessation Education: 3 to 10 minutes Medications reviewed and adjusted accordingly: Yes Anticipated discharge: Home - Inpatient Certification Based on my medical assessment, after consideration of the patient's comorbidities, presenting symptoms, or acuity I expect that the services needed warrant INPATIENT care.: Yes I certify that my determination is in accordance with my understanding of Medicare's requirements for reasonable and necessary INPATIENT services [42 CFR 412.3e].: Yes Medical Necessity: Need For IV Fluids, Need for Nebulizer Therapy and Monitoring of Response, Need for Pain Control, Need for IV Antibiotics Post Hospital Care: D/C Outpatient Physical Therapist Assistant Documentation
[2019-09-26] MEDS: NORMAL SALINE 1000 ML 1,000 ML IV PRN (17:48)
[2019-09-26] MEDS ORDERED: (PENDING PHARMACY ID) (Potassium Chloride [Klor-Con M20] 20 MEQ) PO SCH (18:00)
[2019-09-26] MEDS ORDERED: APIXABAN 5 MG TABLET PO SCH (18:00)
--- NOTE | 2019-09-26 18:16 | EKG REPORT ---
SEVERITY:- ABNORMAL ECG - ATRIAL-PACED V SENSED COMPLEXES ABNRM R PROG, CONSIDER ASMI OR LEAD PLACEMENT : Confirmed by: Ernie Naik MD 26-Sep-2019 18:15:07
[2019-09-26] MEDS: METRONIDAZOLE 500 MG/NS RTU 500 MG/100 ML RTUPB IV SCH (19:01)
[2019-09-26] MEDS: APIXABAN 5 MG TABLET PO SCH (19:02)
[2019-09-26] MEDS: BACLOFEN 10 MG TABLET PO SCH (19:03)
[2019-09-26] MEDS: DOCUSATE SODIUM 100 MG CAPSULE PO SCH (19:04)
[2019-09-26] MEDS ORDERED: ATORVASTATIN CALCIUM 40 MG TABLET PO SCH (22:00)
[2019-09-26] MEDS ORDERED: PROPAFENONE HCL 325 MG PO SCH (22:00)
[2019-09-26] MEDS ORDERED: HYDROXYZINE PAMOATE 50 MG CAPSULE PO SCH (22:00)
[2019-09-26] MEDS: MORPHINE SULFATE 10 MG/ML INJ IV PRN (22:14)
[2019-09-26] MEDS: PANTOPRAZOLE SODIUM 40 MG VIAL IV SCH (22:23)
[2019-09-26] MEDS: POTASSIUM CHLORIDE 10 MEQ TABLET.ER PO SCH (22:24)
[2019-09-26] MEDS: INSULIN LISPRO 100 UNIT/ML 3 ML VIAL SUBCUT SCH (22:27)
[2019-09-27] MEDS: METRONIDAZOLE 500 MG/NS RTU 500 MG/100 ML RTUPB IV SCH ×4 (00:35→18:25)
[2019-09-27] MEDS: IPRATROPIUM/ALBUTEROL 0.5-2.5 MG/3 ML AMPUL NEB SCH ×2 (00:47→08:06)
[2019-09-27] MEDS: POTASSIUM CHLORIDE 10 MEQ TABLET.ER PO SCH ×2 (05:33→18:26)
[2019-09-27] MEDS: MORPHINE SULFATE 10 MG/ML INJ IV PRN ×2 (05:42→09:47)
[2019-09-27 06:04] LABS: ABSOLUTE BASOPHILS # (AUTO) 0.1 10^3/uL (0.0-0.2); ABSOLUTE EOSINOPHILS # (AUTO) 0.1 10^3/uL (0.0-0.6); ABSOLUTE LYMPHOCYTES (AUTO) 2.1 10^3/uL (0.5-4.7); ABSOLUTE MONOCYTES (AUTO) 0.6 10^3/uL (0.1-1.4); BASOPHILS % (AUTO) 0.8 % (0-2); EOSINOPHILS % (AUTO) 1.2 % (0-6); HEMATOCRIT 42.8 % (36.0-47.0); LYMPHOCYTES % (AUTO) 23.4 % (13-45); MEAN CORPUSCULAR HEMOGLOBIN 31.5 pg (27.0-33.4); MEAN CORPUSCULAR HGB CONC 33.7 g/dL (32.0-36.0); MEAN CORPUSCULAR VOLUME 94 fl (80-97); MONOCYTES % (AUTO) 6.5 % (3-13); PLATELET COUNT 143 10^3/uL (150-450); RED BLOOD COUNT 4.57 10^6/uL (3.72-5.28); RED CELL DISTRIBUTION WIDTH 14.4 % (11.5-14.0); SEGMENTED NEUTROPHILS % (AUTO) 68.1 % (42-78); TOTAL CELLS COUNTED % (AUTO) 100 %; WHITE BLOOD COUNT 8.8 10^3/uL (4.0-10.5)
[2019-09-27 06:06] LABS: HEMOGLOBIN 14.4 g/dL (12.0-15.5)
[2019-09-27 06:14] LABS: BLOOD UREA NITROGEN 15 mg/dL (7-20); CALCIUM 7.9 mg/dL (8.4-10.2); CHLORIDE 108 mmol/L (98-107); GLUCOSE 101 mg/dL (75-110); POTASSIUM 4.7 mmol/L (3.6-5.0)
[2019-09-27 06:19] LABS: CARBON DIOXIDE 24 mmol/L (22-30)
[2019-09-27 06:21] LABS: ANION GAP 4 (5-19)
[2019-09-27 06:53] LABS: ERYTHROCYTE SEDIMENTATION RATE 8 mm/hr (0-30)
[2019-09-27] MEDS: INSULIN LISPRO 100 UNIT/ML 3 ML VIAL SUBCUT SCH ×4 (08:12→21:54)
[2019-09-27] MEDS: CIPROFLOXACIN 400 MG/D5W RTU 400 MG/200 ML RTUPB IV SCH ×2 (09:43→22:01)
[2019-09-27] MEDS: NORMAL SALINE 1000 ML 1,000 ML IV PRN ×2 (09:43→22:01)
[2019-09-27] MEDS: DOCUSATE SODIUM 100 MG CAPSULE PO SCH ×2 (09:48→18:26)
[2019-09-27] MEDS: APIXABAN 5 MG TABLET PO SCH ×2 (09:48→18:26)
[2019-09-27] MEDS: METFORMIN HCL 500 MG TABLET PO SCH ×2 (09:48→09:53)
[2019-09-27] MEDS: METOPROLOL SUCCINATE 25 MG TAB.SR.24H PO SCH (09:48)
[2019-09-27] MEDS: LOSARTAN POTASSIUM 50 MG TABLET PO SCH (09:49)
[2019-09-27] MEDS: HYDROCHLOROTHIAZIDE 12.5 MG TABLET PO SCH (09:49)
[2019-09-27] MEDS: PANTOPRAZOLE SODIUM 40 MG VIAL IV SCH ×2 (09:50→22:01)
[2019-09-27] MEDS: ROFLUMILAST 500 MCG TABLET PO SCH (09:50)
[2019-09-27] MEDS: COLCHICINE 0.6 MG TABLET PO SCH (09:58)
[2019-09-27] MEDS: BACLOFEN 10 MG TABLET PO SCH ×3 (09:58→18:26)
[2019-09-27] MEDS ORDERED: (PENDING PHARMACY ID) (Telmisartan/Hydrochlorothiazid [Telmisartan-Hctz 80-12.5 Mg Tb] 1 T PO SCH (10:00)
[2019-09-27] MEDS ORDERED: (PENDING PHARMACY ID) (Roflumilast [Daliresp] 500 MCG) PO SCH (10:00)
[2019-09-27] MEDS: PROMETHAZINE HCL INJ 25 MG/1 ML VIAL IV PRN (10:57)
--- NOTE | 2019-09-27 13:55 | PDOC PROGRESS REPORT ---
Subjective Progress Note for:: 09/27/19 Subjective:: Had some nausea this morning with morphine. Will change back to oral medication. Still with some abdominal discomfort. Reason For Visit: ILEITIS/COLITIS ABDOMINAL PAIN DIABETES MELLITUS Physical Exam Vital Signs: Temp Pulse Resp BP Pulse Ox 97.9 F 66 16 111/59 L 94 09/27/19 12:00 09/27/19 12:00 09/27/19 12:00 09/27/19 12:00 09/27/19 12:00 Intake & Output 09/26/19 09/27/19 09/28/19 06:59 06:59 06:59 Intake Total 3700 200 Output Total 600 Balance 3100 200 Weight 76.6 kg General appearance: PRESENT: cooperative, mild distress, well-developed, well- nourished Head exam: PRESENT: atraumatic, normocephalic Eye exam: PRESENT: conjunctiva pink. ABSENT: scleral icterus Ear exam: PRESENT: normal external ear exam. ABSENT: bleeding, drainage Mouth exam: PRESENT: moist, tongue midline Neck exam: ABSENT: carotid bruit, JVD, lymphadenopathy Respiratory exam: PRESENT: clear to auscultation zen, symmetrical, unlabored. ABSENT: rales, rhonchi, tachypnea, wheezes Cardiovascular exam: PRESENT: RRR, +S1, +S2 GI/Abdominal exam: PRESENT: normal bowel sounds, soft, tenderness - Minimal tenderness today. ABSENT: distended, guarding Rectal exam: PRESENT: deferred Gentrourinary exam: ABSENT: indwelling catheter Extremities exam: ABSENT: joint swelling, pedal edema Musculoskeletal exam: PRESENT: ambulatory, normal inspection. ABSENT: deformity Neurological exam: PRESENT: alert, awake, oriented to person, oriented to place, oriented to time, oriented to situation, CN II-XII grossly intact. ABSENT: altered Psychiatric exam: PRESENT: anxious. ABSENT: agitated Focused psych exam: ABSENT: delusional, paranoid, restlessness Skin exam: PRESENT: dry, normal color, warm. ABSENT: rash Results Laboratory Results: 09/27/19 05:23 09/27/19 05:23 09/26/19 09/26/19 09/26/19 14:15 15:05 19:35 WBC RBC Hgb Hct MCV MCH MCHC RDW Plt Count Seg Neutrophils % Sodium Potassium Chloride Carbon Dioxide Anion Gap BUN Creatinine Est GFR ( Amer) Glucose Lactic Acid 2.1 1.3 Calcium Magnesium Urine Color YELLOW Urine Appearance CLEAR Urine pH 5.0 Ur Specific [place] 1.028 Urine Protein NEGATIVE Urine Glucose (UA) NEGATIVE Urine Ketones NEGATIVE Urine Blood NEGATIVE Urine RBC (Auto) 0 09/26/19 09/27/19 09/27/19 20:43 05:23 05:23 WBC 8.8 RBC 4.57 Hgb 14.4 D Hct 42.8 MCV 94 MCH 31.5 MCHC 33.7 RDW 14.4 H Plt Count 143 L Seg Neutrophils % 68.1 Sodium 135.6 L Potassium 4.7 Chloride 108 H Carbon Dioxide 24 Anion Gap 4 L BUN 15 Creatinine 0.68 Est GFR ( Amer) > 60 Glucose 101 Lactic Acid 1.6 Calcium 7.9 L Magnesium 1.9 Urine Color Urine Appearance Urine pH Ur Specific [place] Urine Protein Urine Glucose (UA) Urine Ketones Urine Blood Urine RBC (Auto) 09/26/19 09/26/19 11:48 13:03 Troponin I Cancelled < 0.012 Impressions: Abdomen/Pelvis CT 09/26/19 11:57 IMPRESSION: 1. There are 2 ventral hernias containing a small loop of small bowel. Associated with the more cephalad hernia are some small bowel loops that have thickened mccabe. Cannot exclude inflammatory bowel disease. Is possible that the wall thickening is is somewhat a associated with the ventral hernia although the bowel within the hernia is not thickened. 2. Likely 15 mm hepatic hemangioma. Assessment and Plan - Diagnosis (1) Enteritis Is this a current diagnosis for this admission?: Yes Plan: 09/26/2019 Possibly related to her meal last night. Stool studies were ordered by the emergency department physician. Intravenous metronidazole and ciprofloxacin. Intravenous medications for pain, nausea and vomiting. 09/27/2019 Still with some discomfort but improved. Sed rate was only 8 so not likely an inflammatory bowel issue. New cultures are negative so far. Likely related to meal the night before. (2) Abdominal pain Qualifiers: Abdominal location: generalized Qualified Code(s): R10.84 - Generalized abdominal pain Is this a current diagnosis for this admission?: Yes Plan: 09/26/2019 The patient is on oxycodone at home. She reports a history of delayed gastric emptying and the pain medication certainly do not help. We will utilize i ntravenous analgesia with the time being and reassess tomorrow. 09/27/2019 Improved (3) Dehydration Is this a current diagnosis for this admission?: Yes Plan: 09/26/2019 BUN was slightly elevated. Will administer IV fluids. Recheck laboratory studies tomorrow. We will also hold her furosemide for tonight. 09/27/2019 Resolved with IV fluids (4) Hyperglycemia due to type 2 diabetes mellitus Qualifiers: Diabetes mellitus shelter insulin use: without shelter use Qualified Code(s): E11.65 - Type 2 diabetes mellitus with hyperglycemia Is this a current diagnosis for this admission?: Yes Plan: 09/26/2019 We will continue her metformin and utilize Accu-Cheks with sliding scale coverage. 09/27/2019 Hyperglycemia resolved (5) Longstanding persistent atrial fibrillation Is this a current diagnosis for this admission?: Yes Plan: 09/26/2019 Atrial fibrillation is well controlled. We will continue her current medication regimen including anticoagulation. 09/27/2019 Excellent rate control. Continue current medications. (6) Hypertension Qualifiers: Hypertension type: essential hypertension Qualified Code(s): I10 - Essential (primary) hypertension Is this a current diagnosis for this admission?: Yes Plan: 09/26/2019 Continue current medication regimen. Monitor vital signs. 09/27/2019 Excellent blood pressure control. Continue current medications (7) Hyperlipidemia Qualifiers: Hyperlipidemia type: unspecified Qualified Code(s): E78.5 - Hyperlipidemia, unspecified Is this a current diagnosis for this admission?: Yes Plan: 09/26/2019 Continue statin therapy (8) Tobacco dependence due to cigarettes Is this a current diagnosis for this admission?: Yes Plan: 09/26/2019 Nicotine patch will be available if needed. 09/27/2019 Encouraged tobacco cessation (9) Chronic obstructive pulmonary disease Qualifiers: COPD type: unspecified COPD Qualified Code(s): J44.9 - Chronic obstructive pulmonary disease, unspecified Is this a current diagnosis for this admission?: Yes Plan: 09/26/2019 We will utilize combination of nebulizer treatments and inhalers and continue her Daliresp 09/27/2019 Stable. No need for oxygen supplementation. Continue current regimen. - Time Time Spent with patient: Less than 15 minutes Medications reviewed and adjusted accordingly: Yes Anticipated discharge: Home Within: within 24 hours
[2019-09-27] MEDS: OXYCODONE HCL IR 5 MG TABLET PO PRN ×3 (15:42→22:01)
[2019-09-27] MEDS: FUROSEMIDE 40 MG TABLET PO SCH (18:26)
--- NOTE | 2019-09-27 19:15 | EKG REPORT ---
SEVERITY:- ABNORMAL ECG - ATRIAL-PACED COMPLEXES VENTRICULAR TRIGEMINY : Confirmed by: Ernie Naik MD 27-Sep-2019 19:14:50
[2019-09-28] MEDS: PROMETHAZINE HCL INJ 25 MG/1 ML VIAL IV PRN ×2 (00:18→05:39)
[2019-09-28] MEDS: METRONIDAZOLE 500 MG/NS RTU 500 MG/100 ML RTUPB IV SCH ×3 (00:19→11:37)
[2019-09-28] MEDS: POTASSIUM CHLORIDE 10 MEQ TABLET.ER PO SCH (05:34)
[2019-09-28] MEDS: OXYCODONE HCL IR 5 MG TABLET PO PRN ×2 (05:36→11:03)
[2019-09-28 05:58] LABS: ANION GAP 7 (5-19); BLOOD UREA NITROGEN 18 mg/dL (7-20); CALCIUM 8.4 mg/dL (8.4-10.2); CARBON DIOXIDE 23 mmol/L (22-30); CHLORIDE 105 mmol/L (98-107); GLUCOSE 126 mg/dL (75-110)
[2019-09-28] MEDS: INSULIN LISPRO 100 UNIT/ML 3 ML VIAL SUBCUT SCH ×2 (07:22→10:55)
[2019-09-28] MEDS: BACLOFEN 10 MG TABLET PO SCH (09:47)
[2019-09-28] MEDS: COLCHICINE 0.6 MG TABLET PO SCH (09:48)
[2019-09-28] MEDS: LOSARTAN POTASSIUM 50 MG TABLET PO SCH (09:48)
[2019-09-28] MEDS: ROFLUMILAST 500 MCG TABLET PO SCH (09:48)
[2019-09-28] MEDS: APIXABAN 5 MG TABLET PO SCH (09:48)
[2019-09-28] MEDS: HYDROCHLOROTHIAZIDE 12.5 MG TABLET PO SCH (09:48)
[2019-09-28] MEDS: FUROSEMIDE 40 MG TABLET PO SCH (09:49)
[2019-09-28] MEDS: DOCUSATE SODIUM 100 MG CAPSULE PO SCH (09:49)
[2019-09-28] MEDS: CIPROFLOXACIN 400 MG/D5W RTU 400 MG/200 ML RTUPB IV SCH (09:49)
[2019-09-28] MEDS: PANTOPRAZOLE SODIUM 40 MG VIAL IV SCH (09:49)
[2019-09-28] MEDS: METOPROLOL SUCCINATE 25 MG TAB.SR.24H PO SCH (09:50)
--- NOTE | 2019-09-28 12:30 | PDOC DISCHARGE SUMMARY ---
Impression - Admit/DC Date/PCP Admission Date/Primary Care Provider: 09/26/19 17:24 Discharge Date: 09/28/19 - Discharge Diagnosis (1) Enteritis Is this a current diagnosis for this admission?: Yes (2) Abdominal pain Is this a current diagnosis for this admission?: Yes (3) Dehydration Is this a current diagnosis for this admission?: Yes (4) Hyperglycemia due to type 2 diabetes mellitus Is this a current diagnosis for this admission?: Yes (5) Longstanding persistent atrial fibrillation Is this a current diagnosis for this admission?: Yes (6) Hypertension Is this a current diagnosis for this admission?: Yes (7) Hyperlipidemia Is this a current diagnosis for this admission?: Yes (8) Tobacco dependence due to cigarettes Is this a current diagnosis for this admission?: Yes (9) Chronic obstructive pulmonary disease Is this a current diagnosis for this admission?: Yes - Additional Information Resuscitation Status: Full Code Discharge Diet: Cardiac, Diabetic Discharge Activity: Activity As Tolerated Prescriptions: Ciprofloxacin HCl [Cipro 500 mg Tablet] 500 mg PO BID #14 tablet Metronidazole [Flagyl 500 mg Tablet] 500 mg PO TID #21 tablet Home Medications: Apixaban [Eliquis 5 mg Tablet] 5 mg PO BID 09/26/19 Atorvastatin Calcium [Lipitor 40 mg Tablet] 40 mg PO QHS 09/26/19 Baclofen [Baclofen 10 mg Tablet] 10 mg PO TID 09/26/19 Colchicine [Colcrys 0.6 mg Tablet] 1 tab PO DAILY 09/26/19 Diclofenac Epolamine 1 each TD Q12 09/26/19 Diphenoxylate HCl/Atropine [Lomotil 2.5-0.025 mg Tablet] 1 each PO DAILYP PRN 09/26/19 Furosemide [Lasix] 40 mg PO BID 09/26/19 Hydroxyzine Pamoate [Vistaril 50 mg Capsule] 50 mg PO Q8 09/26/19 Ipratropium/Albuterol Sulfate [Combivent Respimat 4 gm Mdi] 1 puff IH TID 09/26/19 Metformin HCl [Glucophage 500 mg Tablet] 500 mg PO DAILY 09/26/19 Metoprolol Succinate [Toprol Xl 25 mg Tab.sr] 25 mg PO DAILY 09/26/19 Ondansetron HCl [Zofran 8 mg Tablet] 8 mg PO Q8HP PRN 09/26/19 Oxycodone HCl [Oxy-Ir 5 mg Tablet] 15 mg PO 5XDP PRN 09/26/19 Potassium Chloride [Klor-Con M20] 20 meq PO BID 09/26/19 Propafenone HCl [Rythmol Sr] 325 mg PO Q12 09/26/19 Roflumilast [Daliresp] 500 mcg PO DAILY 09/26/19 Telmisartan/Hydrochlorothiazid [Telmisartan-Hctz 80-12.5 mg Tb] 1 tab PO DAILY 09/26/19 Zolpidem Tartrate [Ambien 5 mg Tablet] 5 mg PO HSP PRN 09/26/19 Apixaban [Eliquis 5 mg Tablet] 5 mg PO BID tablet 09/28/19 Ciprofloxacin HCl [Cipro 500 mg Tablet] 500 mg PO BID #14 tablet 09/28/19 Metronidazole [Flagyl 500 mg Tablet] 500 mg PO TID #21 tablet 09/28/19 History of Present Illiness History of Present Illness: ROMELIA PEARCE is a 64 year old female with a long history of digestive disorders. She thinks she has been told that she has colitis. She does remember her colon rupturing then having surgery to remove part of the colon. She also reports delayed gastric emptying time. She believes that the time was greater than 3 hours. Also has a history of stroke, diabetes, atrial fibrillation and a pulmonary embolus. She reports having a pacemaker and a history of thyroid surgery. She is on long-term anticoagulation. She states that this episode abdominal pain, nausea and vomiting started last evening. She had a seafood dish with shrimp and pasta. She has been having increased abdominal pain as well as nausea and vomiting. Her appetite has been diminished. She reports chills but no fever. She has several areas of discomfort including the epigastrium as well as the right and left lower quadrants. The CT scan of the abdomen shows some inflammation in the small bowel. There are 2 ventral hernias with bowel but these reduce easily per Dr. Munoz's note. She will be admitted for IV antibiotics and pain management. In addition will need to monitor her Accu-Cheks and vital signs. We will follow her oral intake. Have asked Dr. Munoz to continue to follow the patient up with us. Hospital Course Hospital Course: Unremarkable hospital course. The patient did have some nausea and vomiting yesterday. This was possibly related to intravenous analgesics. She feels much better today. Her white blood cell count has normalized and she is tolerating some of her diet. She is stable for discharge. Physical Exam Vital Signs: Temp Pulse Resp BP Pulse Ox 98.5 F 64 24 H 111/52 L 93 09/28/19 10:42 09/28/19 10:42 09/28/19 10:42 09/28/19 10:42 09/28/19 10:42 Intake & Output 09/27/19 09/28/19 09/29/19 06:59 06:59 06:59 Intake Total 3700 3975 556 Output Total 600 2450 Balance 3100 1525 556 Weight 76.6 kg 76.6 kg General appearance: PRESENT: no acute distress Respiratory exam: PRESENT: clear to auscultation zen, unlabored. ABSENT: rales, rhonchi, tachypnea, wheezes Cardiovascular exam: PRESENT: RRR, +S1, +S2 GI/Abdominal exam: PRESENT: normal bowel sounds, soft. ABSENT: distended, guarding, tenderness Rectal exam: PRESENT: deferred Gentrourinary exam: ABSENT: indwelling catheter Extremities exam: ABSENT: pedal edema Musculoskeletal exam: PRESENT: ambulatory, normal inspection Neurological exam: PRESENT: alert, awake, oriented to person, oriented to place, oriented to time, oriented to situation, CN II-XII grossly intact Results Laboratory Results: WBC 8.8 10^3/uL (4.0-10.5) 09/27/19 05:23 RBC 4.57 10^6/uL (3.72-5.28) 09/27/19 05:23 Hgb 14.4 g/dL (12.0-15.5) D 09/27/19 05:23 Hct 42.8 % (36.0-47.0) 09/27/19 05:23 MCV 94 fl (80-97) 09/27/19 05:23 MCH 31.5 pg (27.0-33.4) 09/27/19 05:23 MCHC 33.7 g/dL (32.0-36.0) 09/27/19 05:23 RDW 14.4 % (11.5-14.0) H 09/27/19 05:23 Plt Count 143 10^3/uL (150-450) L 09/27/19 05:23 Lymph % (Auto) 23.4 % (13-45) 09/27/19 05:23 Isabella % (Auto) 6.5 % (3-13) 09/27/19 05:23 Eos % (Auto) 1.2 % (0-6) 09/27/19 05:23 Baso % (Auto) 0.8 % (0-2) 09/27/19 05:23 Absolute Neuts (auto) 6.0 10^3/uL (1.7-8.2) 09/27/19 05:23 Absolute Lymphs (auto) 2.1 10^3/uL (0.5-4.7) 09/27/19 05:23 Absolute Monos (auto) 0.6 10^3/uL (0.1-1.4) 09/27/19 05:23 Absolute Eos (auto) 0.1 10^3/uL (0.0-0.6) 09/27/19 05:23 Absolute Basos (auto) 0.1 10^3/uL (0.0-0.2) 09/27/19 05:23 Seg Neutrophils % 68.1 % (42-78) 09/27/19 05:23 ESR 8 mm/hr (0-30) 09/27/19 05:23 PT 13.0 SEC (11.4-15.4) 09/26/19 11:48 INR 0.98 09/26/19 11:48 VBG pH 7.24 (7.30-7.42) L 09/26/19 13:03 VBG pCO2 63.8 mmHg (35-63) H 09/26/19 13:03 VBG HCO3 26.7 mmol/L (20-32) 09/26/19 13:03 VBG Base Excess -2.4 mmol/L 09/26/19 13:03 Sodium 135.0 mmol/L (137-145) L 09/28/19 04:47 Potassium 5.0 mmol/L (3.6-5.0) 09/28/19 04:47 Chloride 105 mmol/L (98-107) 09/28/19 04:47 Carbon Dioxide 23 mmol/L (22-30) 09/28/19 04:47 Anion Gap 7 (5-19) 09/28/19 04:47 BUN 18 mg/dL (7-20) 09/28/19 04:47 Creatinine 0.98 mg/dL (0.52-1.25) 09/28/19 04:47 Est GFR ( Amer) > 60 (>60) 09/28/19 04:47 Est GFR (Non-Af Amer) Cancelled 09/26/19 11:48 Est GFR (MDRD) Non-Af 57 (>60) L 09/28/19 04:47 Glucose 126 mg/dL (75-110) H 09/28/19 04:47 POC Glucose 133 mg/dL (70-110) H 09/28/19 10:40 Lactic Acid 1.6 mmol/L (0.7-2.1) 09/26/19 20:43 Calcium 8.4 mg/dL (8.4-10.2) 09/28/19 04:47 Magnesium 1.9 mg/dL (1.6-2.3) 09/27/19 05:23 Total Bilirubin 0.6 mg/dL (0.2-1.3) 09/26/19 13:03 Direct Bilirubin 0.0 mg/dL (0.0-0.4) 09/26/19 13:03 Neonat Total Bilirubin Not Reportable 09/26/19 13:03 Neonat Direct Bilirubin Not Reportable 09/26/19 13:03 Neonat Indirect Bili Not Reportable 09/26/19 13:03 AST 16 U/L (14-36) 09/26/19 13:03 ALT 18 U/L (<35) 09/26/19 13:03 Alkaline Phosphatase 81 U/L (38-126) 09/26/19 13:03 Troponin I < 0.012 ng/mL 09/26/19 13:03 Total Protein 6.4 g/dL (6.3-8.2) 09/26/19 13:03 Albumin 3.7 g/dL (3.5-5.0) 09/26/19 13:03 EGFR Cancelled 09/26/19 11:48 Urine Color YELLOW 09/26/19 15:05 Urine Appearance CLEAR 09/26/19 15:05 Urine pH 5.0 (5.0-9.0) 09/26/19 15:05 Ur Specific [place] 1.028 09/26/19 15:05 Urine Protein NEGATIVE mg/dL (NEGATIVE) 09/26/19 15:05 Urine Glucose (UA) NEGATIVE mg/dL (NEGATIVE) 09/26/19 15:05 Urine Ketones NEGATIVE mg/dL (NEGATIVE) 09/26/19 15:05 Urine Blood NEGATIVE (NEGATIVE) 09/26/19 15:05 Urine Nitrite (Reflex) NEGATIVE (NEGATIVE) 09/26/19 15:05 Urine Bilirubin NEGATIVE (NEGATIVE) 09/26/19 15:05 Urine Urobilinogen NEGATIVE mg/dL (<2.0) 09/26/19 15:05 Leukocyte Esterase Rfl NEGATIVE (NEGATIVE) 09/26/19 15:05 Urine RBC (Auto) 0 /HPF 09/26/19 15:05 U Hyaline Cast (Auto) 4 /LPF 09/26/19 15:05 Urine WBC (Reflex) 1 /HPF 09/26/19 15:05 Squamous Epi Cells Auto 1 /HPF 09/26/19 15:05 Urine Mucus (Auto) RARE /LPF 09/26/19 15:05 Urine Ascorbic Acid NEGATIVE (NEGATIVE) 09/26/19 15:05 09/26/19 09/26/19 11:48 13:03 Troponin I Cancelled < 0.012 Impressions: Abdomen/Pelvis CT 09/26/19 11:57 IMPRESSION: 1. There are 2 ventral hernias containing a small loop of small bowel. Associated with the more cephalad hernia are some small bowel loops that have thickened mccabe. Cannot exclude inflammatory bowel disease. Is possible that the wall thickening is is somewhat a associated with the ventral hernia although the bowel within the hernia is not thickened. 2. Likely 15 mm hepatic hemangioma. Plan Health Concerns: Rapid onset of enteritis. Cultures negative. Etiology likely from her meal. Plan of Treatment: Complete ciprofloxacin and metronidazole as an outpatient. Advance diet slowly. Follow-up with primary care provider. Goals: Complete resolution of enteritis Time Spent: Greater than 30 Minutes Stroke Is this a Stroke Patient?: No Acute Heart Failure - Is this a Heart Failure Patient?: No
[2019-09-28 13:02] VITALS: BP 92/45
[2019-09-28] MEDS ORDERED: PROMETHAZINE HCL INJ 25 MG/1 ML VIAL IV PRN (14:30)
[2019-09-28] MEDS ORDERED: PANTOPRAZOLE SODIUM 40 MG TABLET.DR PO SCH (22:00)
== END 2019-09-28 13:45 | disposition home or self-care (01) | DRG 392 ==
LOC: ER 11:34 → EH 17:24 → 4S 18:38
PROVIDERS: ADMIT Hospitalist; ATTEND Hospitalist
DX: K52.9 Noninfective gastroenteritis and colitis, unspecified (principal); I48.11 Longstanding persistent atrial fibrillation; F17.210 Nicotine dependence, cigarettes, uncomplicated; E86.0 Dehydration; E78.5 Hyperlipidemia, unspecified; I50.9 Heart failure, unspecified; E11.65 Type 2 diabetes mellitus with hyperglycemia; K43.9 Ventral hernia without obstruction or gangrene; J44.9 Chronic obstructive pulmonary disease, unspecified; Z79.01 Long term (current) use of anticoagulants; Z88.5 Allergy status to narcotic agent; Z88.2 Allergy status to sulfonamides; Z86.718 Personal history of other venous thrombosis and embolism; Z86.711 Personal history of pulmonary embolism; Z90.49 Acquired absence of other specified parts of digestive tract; Z79.84 Long term (current) use of oral hypoglycemic drugs; Z79.899 Other long term (current) drug therapy; Z86.73 Personal history of transient ischemic attack (TIA), and cerebral infarction without residual deficits; Z95.0 Presence of cardiac pacemaker
CPT/HCPCS: 36415; 74177; 80048; 80053; 81001; 82803; 82962; 83605; 83735; 84484; 85025; 85610; 85652; 87040; 87045; 87205; 93005; 93010; 96361; 96365; 96375; 99285; C9113; J0744; J2270; J2550; J3490; J7030

== ENCOUNTER 2020-01-23 15:18 | Emergency (ER) | payer OTHER, MEDICARE, MEDICAID ==
--- NOTE | 2020-01-23 17:18 | RADIOLOGY REPORT (SQ) ---
EXAM DESCRIPTION: CHEST SINGLE VIEW IMAGES COMPLETED DATE/TIME: 01/23/2020 4:58 pm REASON FOR STUDY: CP, dyspnea COMPARISON: 06/14/2018. EXAM PARAMETERS: NUMBER OF VIEWS: One view. TECHNIQUE: Single frontal radiographic view of the chest acquired. RADIATION DOSE: NA LIMITATIONS: None. FINDINGS: LUNGS AND PLEURA: No opacities, masses or pneumothorax. No pleural effusion. MEDIASTINUM AND HILAR STRUCTURES: No masses. Contour normal. HEART AND VASCULAR STRUCTURES: Heart normal in size. Normal vasculature. BONES: No acute findings. HARDWARE: Pacemaker. OTHER: No other significant finding. IMPRESSION: NO ACUTE RADIOGRAPHIC FINDING IN THE CHEST. TECHNICAL DOCUMENTATION: JOB ID: [id number] 2010 [employer]- All Rights Reserved Reading location - IP/workstation name: [email or web address]
[2020-01-23] MEDS ORDERED: IPRATROPIUM/ALBUTEROL 0.5-2.5 MG/3 ML AMPUL NEB ONE (17:34)
[2020-01-23 17:56] LABS: ABSOLUTE EOSINOPHILS # (AUTO) 0.1 10^3/uL (0.0-0.6); ABSOLUTE LYMPHOCYTES (AUTO) 2.2 10^3/uL (0.5-4.7); ABSOLUTE MONOCYTES (AUTO) 0.5 10^3/uL (0.1-1.4); ABSOLUTE NEUT (AUTO) 3.6 10^3/uL (1.7-8.2); BASOPHILS % (AUTO) 0.3 % (0-2); HEMATOCRIT 48.5 % (36.0-47.0); HEMOGLOBIN 15.9 g/dL (12.0-15.5); LYMPHOCYTES % (AUTO) 33.6 % (13-45); MEAN CORPUSCULAR HEMOGLOBIN 31.2 pg (27.0-33.4); MEAN CORPUSCULAR HGB CONC 32.7 g/dL (32.0-36.0); MEAN CORPUSCULAR VOLUME 95 fl (80-97); MONOCYTES % (AUTO) 8.3 % (3-13); PLATELET COUNT 139 10^3/uL (150-450); RED BLOOD COUNT 5.09 10^6/uL (3.72-5.28); RED CELL DISTRIBUTION WIDTH 13.5 % (11.5-14.0); SEGMENTED NEUTROPHILS % (AUTO) 55.8 % (42-78); TOTAL CELLS COUNTED % (AUTO) 100 %; WHITE BLOOD COUNT 6.4 10^3/uL (4.0-10.5)
[2020-01-23 18:12] LABS: ALBUMIN 3.8 g/dL (3.5-5.0); ALKALINE PHOSPHATASE 75 U/L (38-126); ASPARTATE AMINO TRANSFERASE 15 U/L (14-36); BILIRUBIN,DIRECT 0.3 mg/dL (0.0-0.4); BILIRUBIN,TOTAL 0.6 mg/dL (0.2-1.3); BLOOD UREA NITROGEN 13 mg/dL (7-20); CALCIUM 8.8 mg/dL (8.4-10.2); CARBON DIOXIDE 27 mmol/L (22-30); CHLORIDE 110 mmol/L (98-107); GLUCOSE 99 mg/dL (75-110); POTASSIUM 4.2 mmol/L (3.6-5.0); TOTAL PROTEIN 6.1 g/dL (6.3-8.2)
[2020-01-23 18:15] LABS: ANION GAP 4 (5-19)
--- NOTE | 2020-01-23 18:48 | ER Document Report ---
ED General - General Chief Complaint: Chest Pain Stated Complaint: CHEST PAIN,COUGH,CONGESTION Time Seen by Provider: 01/23/20 16:19 TRAVEL OUTSIDE OF THE [place] IN LAST 30 DAYS: No - HPI Notes: Patient is a 64-year-old female, known COVID positive after receiving testing yesterday, who presents to the ER for evaluation of chest pain. She describes it as sharp and stabbing. Is been present since yesterday. She has been coughing for the past several days. She states her cough is been productive. No hemoptysis. She has sharp chest pain in her left chest. Is made worse by deep breaths and coughing. Is really not present at rest. She states her pain medication at home seems to make it better. She has chronic chills as well as nausea, she states that they do not seem to be different. She has chronic diarrhea, again no different. She also notes difficulty smelling and tasting. - Related Data Allergies/Adverse Reactions: codeine Allergy (Verified 01/23/20 16:10) Sulfa (Sulfonamide Antibiotics) Allergy (Verified 01/23/20 16:10) Past Medical History - General Information source: Patient - Social History Smoking Status: Current Every Day Smoker Family History: Reviewed & Not Pertinent, Malignancy Patient has homicidal ideation: No - Past Medical History Cardiac Medical History: Reports: Hx Atrial Fibrillation, Hx Congestive Heart Failure, Hx DVT, Hx Pulmonary Embolism Pulmonary Medical History: Reports: Hx COPD Endocrine Medical History: Reports: Hx Diabetes Mellitus Type 2 GI Medical History: Reports: Hx Diverticulitis - Probable diverticular disease that led to rupture of the colon, Hx Gastroesophageal Reflux Disease Psychiatric Medical History: Denies: Hx Depression Past Surgical History: Reports: Hx Appendectomy, Hx Bowel Surgery, Hx Cholecystectomy, Other - Partial colectomy Review of Systems - Review of Systems Constitutional: See HPI EENT: See HPI Cardiovascular: No symptoms reported Respiratory: See HPI Gastrointestinal: See HPI Genitourinary: No symptoms reported Musculoskeletal: No symptoms reported Skin: No symptoms reported Neurological/Psychological: No symptoms reported Physical Exam - Vital signs Vitals: Resp Pulse Ox 14 96 01/23/20 16:01 01/23/20 16:01 - Notes Notes: Vital signs reviewed, please refer to chart. Head is normocephalic, atraumatic. Pupils equal round, reactive to light. Neck is supple without meningismus. Heart is regular rate and rhythm. Lungs reveal diminished breath sounds with scant expiratory wheezes throughout. Chest wall is markedly tender to palpation. Abdomen is soft, nontender, normoactive bowel sounds throughout. Extremities without cyanosis, clubbing. Posterior calves are nontender. Peripheral pulses are equal. Skin is warm and dry. Patient is awake, alert, neurological exam is nonfocal. Course - Re-evaluation Re-evalutation: 01/23/20 18:56 Patient presents to the emergency department for evaluation. This is a 64-year-old female with multiple medical issues, COPD, who continues to smoke, with a known COVID 19 active infection. Laboratory investigations, imaging were ordered. Labs failed reveal any significant abnormality. She is oxygenating well. She is reminded to quit smoking, counseled on this. She already has pain medication at home, her work-up here was essentially unremarkable. I am not inclined to give steroids for this patient with COVID-19, although they may be helpful in light of a COPD exacerbation, there is some anecdotal evidence that they may increase mortality early in the course of COVID-19 infection. She is instructed to continue symptomatic and supportive care. She voiced understanding. She is to follow-up with primary care, encouraged to do this via telehealth. She is encouraged to isolate at home. She is to return to the ED with worsening or new concerning symptoms of any sort. - Vital Signs Vital signs: Temp Pulse Resp BP Pulse Ox 21 H 102/58 L 92 01/23/20 16:23 01/23/20 16:23 01/23/20 16:23 - Laboratory Result Diagrams: 01/23/20 17:38 01/23/20 17:38 Laboratory results interpreted by me: 01/23/20 01/23/20 17:38 17:38 Hgb 15.9 H Hct 48.5 H Plt Count 139 L Chloride 110 H Anion Gap 4 L Total Protein 6.1 L - Diagnostic Test Radiology reviewed: Reports reviewed Radiology results interpreted by me: 01/23/20 18:57 Chest X-Ray 01/23/20 16:30 IMPRESSION: NO ACUTE RADIOGRAPHIC FINDING IN THE CHEST. - EKG Interpretation by Me Additional EKG results interpreted by me: 01/23/20 18:57 Atrial paced with a rate of 72 bpm. Normal axis and intervals. Nonspecific ST changes, but no acute changes concerning for ischemia or infarction. No change when compared to prior study of September 27, 2019 Discharge - Discharge Clinical Impression: Tobacco dependence due to cigarettes, Chest wall pain, COVID-19 Condition: Stable Disposition: HOME, SELF-CARE Instructions: Chest Wall Pain ([facility]), Viral Syndrome ([facility]) Additional Instructions: Please continue to isolate at home secondary to your COVID-19 testing. Use inhalers at home. Please try to quit smoking. Continue your pain medication at home as directed for chest wall pain. Follow-up with your primary care provider next week. If you develop increased shortness of breath, or any other new or concerning symptoms, please return immediately to the ER for further evaluation.
[2020-01-23 19:08] VITALS: BP 129/70
--- NOTE | 2020-01-24 01:38 | EKG REPORT ---
SEVERITY:- ABNORMAL ECG - ATRIAL-PACED COMPLEXES BORDERLINE RIGHT AXIS DEVIATION ABNRM R PROG, CONSIDER ASMI OR LEAD PLACEMENT : Confirmed by: Corinne Everett MD 24-Jan-2020 01:37:10
== END 2020-01-23 19:16 | disposition home or self-care (01) ==
LOC: ER 15:18
DX: R07.89 Other chest pain (principal); U07.1 COVID-19; K52.9 Noninfective gastroenteritis and colitis, unspecified; F17.210 Nicotine dependence, cigarettes, uncomplicated; Z88.6 Allergy status to analgesic agent; Z88.5 Allergy status to narcotic agent; J44.9 Chronic obstructive pulmonary disease, unspecified; E11.9 Type 2 diabetes mellitus without complications; Z86.711 Personal history of pulmonary embolism; Z86.718 Personal history of other venous thrombosis and embolism
CPT/HCPCS: 36415; 71045; 80053; 84484; 85025; 93005; 93010; 94640; 99285